=== PATIENT | male | born 1945 | race Caucasian/White ===

== ENCOUNTER → 2025-04-27 08:39 | Outpatient (CLI) | payer MEDICARE, SELFPAY ==
--- NOTE | 2025-04-27 08:43 | DI.US.S_ITS ---
PROCEDURE: US PERIPH VENOUS LOW EXTREM LT
== END ==
LOC: US 08:41
PROVIDERS: PCP Neuromusculoskeletal Medicine & OMM; Referring Provider Orthopaedic Surgery; Visit Provider Orthopaedic Surgery
DX: M25.562 Pain in left knee (principal); M25.462 Effusion, left knee; Z96.652 Presence of left artificial knee joint
CPT/HCPCS: 93971